=== PATIENT | male | born 1950 | race Caucasian/White ===

== ENCOUNTER 2017-12-29 06:56 | Inpatient (IN) | payer OTHER ==
--- NOTE | 2017-12-16 21:11 | HP ---
HISTORY AND PHYSICAL: DATE OF ADMISSION/SURGERY: 12/29/17 DATE OF OFFICE VISIT: 12/16/17 SURGEON: Dianelys Barragan MD * (DICTATED BY BAYLEE BRO) PROCEDURE: Left total knee arthroplasty. CHIEF COMPLAINT: Left knee pain. HISTORY OF PRESENT ILLNESS: Mr. Schmidt is a 67-year-old gentleman with continued complaints of left knee pain. He has failed conservative management and elected to proceed with a left total knee arthroplasty, which is scheduled for 12/29/[address] Barragan. PAST MEDICAL HISTORY: Denies. PAST SURGICAL HISTORY: Right shoulder arthroscopy, hernia repair, left knee arthroscopy x2, right knee arthroscopy x2, and right great toe surgery. CURRENT MEDICATIONS: 1. [place] 5/325 one tab twice daily as needed. 2. Ibuprofen 600 mg twice a day as needed. 3. Aspirin 325 daily. ALLERGIES: To DOXYCYCLINE. FAMILY HISTORY: Stroke and ALS. SOCIAL HISTORY: He is a 67-year-old gentleman, lives alone. He uses occasional recreational marijuana and uses alcohol rarely. He denies the use of tobacco or other drugs. REVIEW OF SYSTEMS: A complete 14-point review of systems was reviewed with the patient. It is positive for vertigo and occasional migraines. He denies history of DVT, PE, hepatitis, HIV, or anesthesia problems. PHYSICAL EXAMINATION GENERAL: He is well developed, well nourished, in no acute distress. VITAL SIGNS: He stands 68 inches tall, weighs 165 pounds. Blood pressure 117/ 64 and his heart rate 72. HEENT: Normocephalic, atraumatic. NECK: Supple. No palpable lymph nodes. PULMONARY: The lungs are clear to auscultation bilaterally. CARDIO: Regular rate and rhythm. Strong S1, S2. ABDOMEN: Soft, nontender, nondistended. NEUROLOGICAL: He is alert and oriented x3. Cranial nerves II through XII are intact. MUSCULOSKELETAL: Left lower extremity, the skin is intact. There are no open wounds or abrasions. He has a moderate joint effusion, some tenderness over the medial and lateral joint line. Range of motion is 10 to 110 degrees of flexion. 5/5 lower extremity strength. 2+ dorsalis pedis pulses and intact sensation. ASSESSMENT AND PLAN: Mr. Schmidt is a 67-year-old gentleman with end-stage osteoarthritis of the left knee. He has failed conservative management and elected to proceed with a left total knee arthroplasty, which is scheduled for 12/29/[address] Barragan discussed the risks and benefits of the surgery at today's visit and all his questions were answered. He will follow up with Dr. Barragan 2 weeks after the surgery. BAYLEE BRO [id number]/[facility] #: [id number] [facility]PITALMar[facility]
[~2017-12-29 06:56] MED LIST: Buffered Lidocaine 0.9% SYRIN* 5 ML/SYR SYRINGE INTRADERM ONE
--- OUTSIDE RECORDS SUMMARY | 2017-12-29 07:05 | XMS REPORT ---
:1950 External Reference #:[id number] Author Organization [facility] Address [address] [place] [address] [place] [address] Phone [phone] Care Team Providers Name Role Phone Valentin Healy MD Care Team Information Cast Associate Unavailable Karsten Wiley MD Primary Care Physician Unavailable Payers Type Date Identification Numbers Payment Provider Subscriber Workers Compensation Effective: Policy Number: State Insurance Ugo Schmidt 2016 [id number] Fund Onset: 2000 Group Number: [id number] [address] [address] Group Name: [id number] [place] [id number] [place]ID: [id number] Workers Expires: Policy Number: State Insurance Ugo Schmitd Compensation 2016 [id number] Fund Onset: 2000 Group Number: [id number] [address] [address] Group Name: [phone] [place] [address] PayID: [id number] Commercial Effective: Policy Number: Contreras/[employer] Ugo Schmidt 2013 [id number] Medicaid Expires: 2015 PayID: [id number] [address] [address] [place] [address] Problems Date Description Provider Status Onset: 01/17/2015 Headache Rachelle River NP Active Onset: 04/20/2015 Localized, secondary osteoarthritis Dianelys Barragan M.D. Active Onset: 03/07/2015 Osteoarthrosis Generalized Lower Leg Dianelys Barragan M.D. Active Social History Type Date Description Comments Lives With Alone Occupation Unemployed Smokeless Tobacco Never Used Smokeless Tobacco ETOH Use Occasionally consumes alcohol Smoking Patient has never smoked Exercise Type/Frequency Exercises regularly Allergies, Adverse Reactions, Alerts Date Description Reaction Status Severity Comments 10/01/2012 Doxycycline Chest pain, SOB active Moderate to Severe 02/20/2014 Keflex active stomachache Medications Medication Date Status Form Strength Qnty SIG Indications Ordering Provider [place] 08/04/ Active Tablets 5-325mg 60tab 1 by mouth M17.32 Dianelys 2016 s twice daily Yung, as needed M.D. Ibuprofen 01/17/ Active Tablets 600mg 72tab take /2-1 Dianelys 2014 s tab by mouth Yung, every 8 M.D. hours as needed headache, on no more than 2 days a week. Aspirin Ec / Active Tablets 325mg 90tab 1 po qd prn Unknown 0000 DR echevarria Compression 12/04/ Hx dispense 1 Rosi Stocking 2016 - pair of size Bordoni, 06/04/ large thigh HELP DESK SPECIALIST 2016 high strength compression stockings Naproxen 04/21/ Hx Tablets 500mg 60tab 1 by mouth Dianelys 2013 - s twice a day Yung, 03/06/ as needed M.D. 2014 Keflex 01/09/ Hx Capsules 500mg 56cap 1 tablet by Dianelys 2013 - s mouth q6 Yung, 02/19/ hours M.D. 2013 Nortriptyline 01/04/ Hx Capsules 10mg 150ca 1 po qhs for Valentin S. HCL 2014 - ps 2 wks then 2 Niraj, 12/07/ qhs for 2 M.D. 2014 wks then 3 qhs Colace 12/21/ Hx Capsules 100mg 60cap 1 by mouth Dianelys 2013 - s twice a day Yung, 02/19/ M.D. 2013 Hydrocodone-Abel 11/25/ Hx Tablets 5-325mg 80tab 1 or 2 tabs Dianelys taminophen 2013 - s po every 6-8 Yung, 06/04/ hours as M.D. 2016 needed for pain Nortriptyline 04/02/ Hx Capsules 10mg 60cap 1 for 2 Valentin S. HCL 2011 - s weeks then 2 [place], 10/01/ at bedtime M.D. 2012 Vicodin / Hx Tablets 5-300mg 2tabs 1/2 tab po Unknown 0000 - prn once 11/09/ daily 2013 Ibuprofen / Hx Tablets 600mg 90tab 1 by mouth Dianelys 0000 - s three a day Yung 01/17/ as needed Francois 2014 Medications Administered in Office Medication Date Status Form Strength Qnty SIG Indications Ordering Provider Depomedrol Administered Injection Dianelys 20MG Juan Barragan M.D. Synvisc Or Administered Injection Mal[place] B Synvisc-One Juan Barton, Injection 1 MG PA Synvisc Or Administered Injection Dianelys Synvisc-One Juan Barragan M.D. Injection 1 MG Synvisc Or Administered Injection Dianelys Synvisc-One Juan Barragan M.D. Injection 1 MG Synvisc Or Administered Injection Dianelys Synvisc-One Malik Barragan M.D. Injection 1 MG Synvisc Or Administered Injection Dianelys Synvisc-One Malik Barragan M.D. Injection 1 MG Synvisc Or Administered Injection Dianelys Synvisc-One Malik Barragan M.D. Injection 1 MG Synvisc Or Administered Injection Dianelys Synvisc-One Christen Barragan M.D. Injection 1 MG Synvisc Or Administered Injection Dianelys Synvisc-One Christen Barragan M.D. Injection 1 MG Synvisc Or Administered Injection Dianelys Synvisc-One Christen Barragan M.D. Injection 1 MG Depomedrol Administered Injection Dianelys 80MG Samaria Barragan M.D. Vital Signs Date Vital Result Comment 12/16/2017 Height 68 inches 5'8" Weight 165.00 lb BP Systolic 117 mmHg BP Diastolic 64 mmHg Respiratory Rate 16 /min Pain Level 5 BMI (Body Mass Index) 25.1 kg/m2 11/02/2017 Height 68 inches 5'8" Weight 165.00 lb Heart Rate 72 /min BP Systolic 128 mmHg BP Diastolic 78 mmHg BMI (Body Mass Index) 25.1 kg/m2 02/06/2017 Height 68 inches 5'8" Weight 163.00 lb Heart Rate 62 /min BP Systolic 153 mmHg BP Diastolic 89 mmHg Pain Level 6 BMI (Body Mass Index) 24.8 kg/m2 09/15/2016 Height 68 inches 5'8" Weight 165.00 lb Heart Rate 62 /min BP Systolic 122 mmHg BP Diastolic 80 mmHg Respiratory Rate 18 /min Body Temperature 97.7 F Pain Level 3 BMI (Body Mass Index) 25.1 kg/m2 09/08/2016 Height 68 inches 5'8" Weight 165.00 lb Heart Rate 56 /min BP Systolic 126 mmHg BP Diastolic 82 mmHg Pain Level 6 BMI (Body Mass Index) 25.1 kg/m2 09/01/2016 Height 68 inches 5'8" Weight 165.00 lb Heart Rate 60 /min Respiratory Rate 20 /min Pain Level 6 BMI (Body Mass Index) 25.1 kg/m2 08/04/2016 Height 68 inches 5'8" Weight 165.00 lb Heart Rate 61 /min BP Systolic 138 mmHg BP Diastolic 92 mmHg Pain Level 4 BMI (Body Mass Index) 25.1 kg/m2 06/05/2016 Height 68 inches 5'8" Weight 163.00 lb Heart Rate 56 /min BP Systolic Sitting 126 mmHg BP Diastolic Sitting 86 mmHg BP Systolic Standing 124 mmHg BP Diastolic Standing 82 mmHg Respiratory Rate 14 /min BMI (Body Mass Index) 24.8 kg/m2 12/12/2015 Height 68 inches 5'8" Weight 165.00 lb Heart Rate 76 /min Respiratory Rate 16 /min Pain Level 4 BMI (Body Mass Index) 25.1 kg/m2 12/05/2015 Height 68 inches 5'8" Weight 165.00 lb Pain Level 3 BMI (Body Mass Index) 25.1 kg/m2 11/28/2015 Height 68 inches 5'8" Weight 115.00 lb Pain Level 3 BMI (Body Mass Index) 17.5 kg/m2 11/07/2015 Height 68 inches 5'8" Weight 115.00 lb Pain Level 4 BMI (Body Mass Index) 17.5 kg/m2 04/27/2015 Height 68 inches 5'8" Weight 115.00 lb Pain Level 5 BMI (Body Mass Index) 17.5 kg/m2 04/20/2015 Height 68 inches 5'8" Weight 115.00 lb Pain Level 6 BMI (Body Mass Index) 17.5 kg/m2 04/13/2015 Height 68 inches 5'8" Weight 155.00 lb Pain Level 10 BMI (Body Mass Index) 23.6 kg/m2 03/07/2015 Height 68 inches 5'8" Weight 155.00 lb Heart Rate 53 /min BP Systolic 123 mmHg BP Diastolic 80 mmHg BMI (Body Mass Index) 23.6 kg/m2 01/16/2015 Height 68 inches 5'8" Weight 155.00 lb Heart Rate 76 /min BP Systolic Sitting 130 mmHg BP Diastolic Sitting 78 mmHg Respiratory Rate 17 /min BMI (Body Mass Index) 23.6 kg/m2 04/21/2014 Height 68 inches 5'8" Weight 165.00 lb Heart Rate 60 /min BMI (Body Mass Index) 25.1 kg/m2 02/20/2014 Height 68 inches 5'8" Weight 165.00 lb Heart Rate 56 /min BP Systolic 115 mmHg BP Diastolic 76 mmHg BMI (Body Mass Index) 25.1 kg/m2 01/20/2014 Height 68 inches 5'8" Weight 163.00 lb Pain Level 4 BMI (Body Mass Index) 24.8 kg/m2 01/09/2014 Height 68 inches 5'8" Weight 163.00 lb Heart Rate 54 /min BP Systolic 125 mmHg BP Diastolic 77 mmHg Body Temperature 97.7 F BMI (Body Mass Index) 24.8 kg/m2 01/04/2014 Height 68 inches 5'8" Weight 163.00 lb Heart Rate 60 /min BP Systolic Sitting 140 mmHg BP Diastolic Sitting 90 mmHg Respiratory Rate 16 /min BMI (Body Mass Index) 24.8 kg/m2 12/21/2013 Height 68 inches 5'8" Weight 167.00 lb Heart Rate 57 /min BP Systolic 143 mmHg BP Diastolic 88 mmHg BMI (Body Mass Index) 25.4 kg/m2 11/25/2013 Height 68 inches 5'8" Weight 168.00 lb Heart Rate 64 /min BMI (Body Mass Index) 25.5 kg/m2 11/10/2013 Height 68 inches 5'8" Weight 168.00 lb Heart Rate 64 /min BMI (Body Mass Index) 25.5 kg/m2 10/01/2012 Heart Rate 57 /min BP Systolic Sitting 118 mmHg BP Diastolic Sitting 78 mmHg Respiratory Rate 14 /min Results Test Date Test Result H/L Range Note Creatinine 10/04/2009 Creatinine 0.80 mg/dL 0.50-1.40 One Over Creatinine 1.20 eGFR Non- 104.8 > 60 eGFR 126.8 > 60 1 1 Because ethnic data is not always readily available, this report includes an eGFR for both -Americans and non- Americans. The National Kidney Disease Education Program (NKDEP) does not endorse the use of the MDRD equation for patients that are not between the ages of 18 and 70, are , have extremes of body size, muscle mass, or nutritional status, or are non- or non-. According to the National Kidney Foundation, irrespective of diagnosis, the stage of the disease is based on the level of kidney function: Stage Description GFR(mL/min/1.73 m(2)) 1 Kidney damage with normal or decreased GFR 90 2 Kidney damage with mild decrease in GFR 60-89 3 Moderate decrease in GFR 30-59 4 Severe decrease in GFR 15-29 5 Kidney failure <15 (or dialysis) Procedures Date CPT Code Description Status 02/06/201718144 Inject/Drain Joint/Bursa Major Completed 09/15/201694991 Inject/Drain Joint/Bursa Major Completed 09/08/201689943 Inject/Drain Joint/Bursa Major Completed 09/01/2016 89185 Inject/Drain Joint/Bursa Major Completed 12/12/2015 16765 Inject/Drain Joint/Bursa Major Completed 12/12/2015 63970 Inject/Drain Joint/Bursa Major Completed 12/05/2015 66966 Inject/Drain Joint/Bursa Major Completed 12/05/2015 29610 Inject/Drain Joint/Bursa Major Completed 11/28/2015 85374 Inject/Drain Joint/Bursa Major Completed 11/28/201552238 Inject/Drain Joint/Bursa Major Completed 04/27/2015 11487 Inject/Drain Joint/Bursa Major Completed 04/27/201514296 Inject/Drain Joint/Bursa Major Completed 04/20/201562822 Inject/Drain Joint/Bursa Major Completed 04/13/2015 14832 Inject/Drain Joint/Bursa Major Completed 04/21/2014 81187 Rad Exam; Knee, Ap&L Completed 12/29/2013 99556 Arthroscopy,Knee,Meniscectomy Medial Or Lateral Completed 12/29/2013 93350 Arthroscopy,Knee,Meniscectomy Medial Or Lateral Completed 11/10/2013 17218 Xray Knee 3 Views Completed 11/10/2013 Inject/Drain Joint/Bursa Major Completed Encounters Type Date Location Provider CPT E/M Dx Office Visit 11/02/2017 [facility] M.D. 78089 M17.32 1:45p C.Jie M25.562 M25.462 Office Visit 02/06/2017 10:45a [facility] M.D. 28225 M17.32 CZhang M25.562 M25.462 Office Visit 08/04/2016 1:45p [facility] M.D. 85080 M17.32 CZhang M17.12 Office Visit 06/05/2016 10:15a [facility] Valentin Valladares 80284 G44.321 Francois Healy Office Visit 11/07/2015 11:15a [facility] 53323 M17.32 [place] Office Visit 03/07/2015 1:00p [facility] 71028 715.06 [place] 715.06 Office Visit 01/16/2015 10:30a [place] [address] 784.0 [facility] [place] 339.22 Office Visit 04/21/2014 2:00p [facility] Darrel Gagnon 60936 715.36 [facility] [place] Office Visit 01/04/2014 11:45a [facility] Mahendra Healy 47592 339.22 [facility] [place] Office Visit 11/25/2013 11:45a [facility] Dianelys Barragan M.D. 27611 836.1 Of [place] 715.96 Office Visit 11/10/2013 1:30p [facility] 64747 715.16 [place] Office Visit 10/01/2012 11:15a [facility] Mahendra Healy 81229 339.22 [facility] [place] Office Visit 04/02/2012 11:15a [facility] Mahendra Healy 56450 339.22 [facility] [place] Office Visit 10/04/2009 10:45a [facility] Steve GarciaAiram Dias, 34359 742.9 [place] Garcia.Lucia Office Visit 09/24/2009 10:30a [facility] Steve Dias, 30348 784.0 [place] Garcia.Lucia 784.2 Plan of Care Future Appointment(s):01/11/2018 10:30 am - Dianelys Barragan M[facility]. at [facility]12/29/2017 9:30 am - Lito Pressley PA-C at [facility]12/29/2017 9:30 am - BAYLEE Robin at [facility]12/29/2017 9:30 am - Dianelys Barragan M.D. at [facility]12/16/2017 - Dianelys Barragan M.D.M17.32 Unilateral post- traumatic osteoarthritis, left kneeFollow up:Follow up: 2 weeks after agzdmejU77.562 Pain in left kneeM25.462 Effusion, left knee
--- OUTSIDE RECORDS SUMMARY | 2017-12-29 07:05 | XMS REPORT ---
:1950 External Reference #:[id number] Author Organization [facility] Address [address] [place] [address] [place] [address] Phone [phone] Care Team Providers Name Role Phone Valentin Healy MD Care Team Information Trimmer Operator Unavailable Karsten Wiley MD Primary Care Physician Unavailable Payers Type Date Identification Numbers Payment Provider Subscriber Workers Compensation Effective: Policy Number: State Insurance Ugo Schmidt 2016 [id number] Fund Onset: 2000 Group Number: [id number] [address] [address] Group Name: [id number] [place] [id number] [place]ID: [id number] Workers Expires: Policy Number: State Insurance Ugo Schmidt Compensation 2016 [id number] Fund Onset: 2000 Group Number: [id number] [address] [address] Group Name: [id number] [place] [address] PayID: [id number] Commercial Effective: Policy Number: Contreras/[employer] Ugo Schmidt 2013 [id number] Medicaid Expires: 2015 PayID: [id number] [address] [address] [place] [address] Problems Date Description Provider Status Onset: 01/17/2015 [...] Form Strength Qnty SIG Indications Ordering Provider [place] 08/04/ Active Tablets 5-325mg 60tab 1 by [...] pair of size Bordoni, 06/04/ large thigh PREHEMMER 2016 high strength compression stockings Naproxen 04/21/ Hx Tablets 500mg 60tab 1 by mouth Dinaelys 2013 - s twice a day Yung, [...] HCL 2011 - s weeks then 2 [place], 10/01/ at bedtime M.D. 2012 Vicodin / [...] Test Date Test Result H/L Range Note Urinalysis Profile 12/16/2017 Urine Color Laila Urine Appearance Clear Urine Specific [place] 1.017 1.010-1.030 Urine pH 6.0 5-9 Urine Urobilinogen Negative Negative Urine Ketones Negative Negative Urine Protein Negative Negative Urine Leukocytes Negative Negative Urine Blood Negative Negative * * Negative 1 Urine Nitrite Negative Negative Urine Bilirubin Negative Negative Urine Glucose Negative Negative CBC Auto Diff 12/16/2017 White Blood Count 6.2 10^3/uL 3.5-10.8 Red Blood Count 4.68 10^6/uL 4.00-5.40 Hemoglobin 14.2 g/dL 14.0-18.0 Hematocrit 43 % 42-52 Mean Corpuscular Volume 91 fL 80-94 Mean Corpuscular Hemoglobin 30 pg 27-31 Mean Corpuscular HGB Conc 34 g/dL 31-36 Red Cell Distribution Width 13 % 10.5-15 Platelet Count 194 10^3/uL 150-450 Mean Platelet Volume 7.3 um3 Low 7.4-10.4 Abs Neutrophils 3.8 10^3/uL 1.5-7.7 Abs Lymphocytes 1.8 10^3/uL 1.0-4.8 Abs Monocytes 0.6 10^3/uL 0-0.8 Abs Eosinophils 0.1 10^3/uL 0-0.6 Abs Basophils 0 10^3/uL 0-0.2 Abs Nucleated RBC 0 10^3/uL Granulocyte % 60.5 % 38-83 Lymphocyte % 28.3 % 25-47 Monocyte % 10.0 % High 0-7 Eosinophil % 0.9 % 0-6 Basophil % 0.3 % 0-2 Nucleated Red Blood Cells % 0 Comp Metabolic Panel 12/16/2017 Sodium 139 mmol/L 139-145 Potassium 4.1 mmol/L 3.5-5.0 Chloride 104 mmol/L 101-111 Co2 Carbon Dioxide 31 mmol/L 22-32 Anion Gap 4 mmol/L 2-11 Glucose 95 mg/dL 70-100 Blood Urea Nitrogen 16 mg/dL 6-24 Creatinine 0.81 mg/dL 0.67-1.17 BUN/Creatinine Ratio 19.8 8-20 Calcium 9.3 mg/dL 8.6-10.3 Total Protein 6.4 g/dL 6.4-8.9 Albumin 4.4 g/dL 3.2-5.2 Globulin 2.0 g/dL 2-4 Albumin/Globulin Ratio 2.2 1-3 Total Bilirubin 0.70 mg/dL 0.2-1.0 Alkaline Phosphatase 67 U/L 34-104 Alt 24 U/L 7-52 Ast 18 U/L 13-39 Egfr Non- 94.8 >60 Egfr 121.9 >60 2 Inr/Protime 12/16/2017 Inr 0.90 0.77-1.02 Laboratory test finding 12/16/2017 Partial Thrombo Time 34.1 seconds 26.0 -36.3 PTT Type & Screen 12/16/2017 Patient Blood Type O Negative Antibody Screen NEGATIVE Creatinine 10/04/2009 Creatinine 0.80 mg/dL 0.50-1.40 One Over Creatinine 1.20 eGFR Non- 104.8 > 60 eGFR 126.8 > 60 3 1 *Ascorbic acid is present which may interfere with detection of blood. 2 Because ethnic data is not always readily [...] 15-29 5 Kidney failure <15 (or dialysis) 3 Because ethnic data is not always readily [...] dialysis) Procedures Date CPT Code Description Status 02/06/201783976 Inject/Drain Joint/Bursa Major W/O US Completed 09/15/201602464 Inject/Drain Joint/Bursa Major W/O US Completed 09/08/201611816 Inject/Drain Joint/Bursa Major W/O US Completed 09/01/201680631 Inject/Drain Joint/Bursa Major W/O US Completed 12/12/2015 89765 Inject/Drain Joint/Bursa Major W/O US Completed 12/12/2015 95943 Inject/Drain Joint/Bursa Major W/O US Completed 12/05/2015 90555 Inject/Drain Joint/Bursa Major W/O US Completed 12/05/201596149 Inject/Drain Joint/Bursa Major W/O US Completed 11/28/2015 30754 Inject/Drain Joint/Bursa Major W/O US Completed 11/28/2015 69155 Inject/Drain Joint/Bursa Major W/O US Completed 04/27/2015 03590 Inject/Drain Joint/Bursa Major W/O US Completed 04/27/2015 54277 Inject/Drain Joint/Bursa Major W/O US Completed 04/20/2015 55094 Inject/Drain Joint/Bursa Major W/O US Completed 04/13/2015 39069 Inject/Drain Joint/Bursa Major W/O US Completed 04/21/2014 04980 Rad Exam; Knee, Ap&L Completed 12/29/2013 68120 Arthroscopy,Knee,Meniscectomy Medial Or Lateral Completed 12/29/2013 54291 Arthroscopy,Knee,Meniscectomy Medial Or Lateral Completed 11/10/2013 46051 Xray Knee 3 Views Completed 11/10/201384292 Inject/Drain Joint/Bursa Major W/O US Completed Encounters Type Date Location Provider CPT E/M Dx Office Visit 11/02/2017 [facility] M.D. 76957 M17.32 1:45p [facility] M25.562 M25.462 Office Visit 02/06/2017 10:45a [facility] M.D. 68749 M17.32 [facility] M25.562 M25.462 Office Visit 08/04/2016 1:45p [facility] M.D. 00956 M17.32 [place] M17.12 Office Visit 06/05/2016 10:15a [facility] Valentin Valladares 73086 G44.321 Francois Healy Office Visit 11/07/2015 11:15a [facility] 99191 M17.32 [place] Office Visit 03/07/2015 1:00p [facility] 95387 715.06 [place] 715.06 Office Visit 01/16/2015 10:30[place] [facility] [place] [address] 784.0 [facility] [place] 339.22 Office Visit 04/21/2014 2:00p [facility] Darrel Gagnon 38533 715.36 [facility] [place] Office Visit 01/04/2014 11:45a [facility] Valentin Healy, 11701 339.22 [facility] [place] Office Visit 11/25/2013 11:45a [facility] Barragan M.D. 62086 836.1 Of [place] 715.96 Office Visit 11/10/2013 1:30p [facility], 28871 715.16 [place] Office Visit 10/01/2012 11:15a [facility] Valentin Healy 74801 339.22 [facility] [place] Office Visit 04/02/2012 11:15a [facility] Valentin Healy 80371 339.22 [facility] [place] M.DAiram Office Visit 10/04/2009 10:45a [facility] Steve Dias, 84800 742.9 [place] M.DAiram Office Visit 09/24/2009 10:30a [facility] [place] Dias, 63991 784.0 [place] 784.2 Plan of Care Future Appointment(s):01/11/2018 10:30 am - Dianelys Barragan M.D. at [facility].12/29/2017 9:30 am - Lito Pressley PA-C at [facility].12/29/2017 9:30 am - BAYLEE Robin at [facility].12/29/2017 9:30 am - Dianelys Barragan M.D. at [facility]12/16/2017 - Dianelys Barragan M.D.M17.32 Unilateral post- traumatic osteoarthritis, left kneeFollow up:Follow up: 2 weeks after znflxefM14.562 Pain in left kneeM25.462 Effusion, left knee
[2017-12-29] MEDS ORDERED: Clindamycin 900 MG IVPREMIX(* 900 MG/50 ML SDV IV ONE (07:44)
[2017-12-29] MEDS ORDERED: Tranexamic Acid 1,000 MG/10 ML 1,000 MG in NS 0.9% 100 ML* 100 ML IV ONE (08:30)
[2017-12-29] MEDS ORDERED: Midazolam* 1 MG/ML 5 ML VIAL (5 MG) ONE (09:10)
[2017-12-29] MEDS ORDERED: Bupivacaine 0.25% SDV* 30 ML ONE (09:10)
[2017-12-29] MEDS ORDERED: fentaNYL* 50 MCG/ML 2 ML VIAL (100 MCG VIAL) ONE ×2 (09:41→16:08)
[2017-12-29] MEDS ORDERED: Dexamethasone IV* 4 MG/ML 1 ML (4 MG) ONE (10:02)
[2017-12-29] MEDS ORDERED: Midazolam* 1 MG/ML 2 ML VIAL (2 MG) ONE (10:25)
[2017-12-29] MEDS ORDERED: Ondansetron ODT TAB* 4 MG PO PRN (10:33)
[2017-12-29] MEDS ORDERED: Naloxone* 0.4 MG/ML 1 ML VIAL IV PRN (10:33)
[2017-12-29] MEDS ORDERED: Ondansetron INJ* 2 MG/ML VIAL IV PRN (10:33)
[2017-12-29] MEDS ORDERED: HYDROmorphone INJ* 1 MG/ML CARPUJECT SYRINGE IV PRN (10:33)
[2017-12-29] MEDS ORDERED: HYDROcodone/ACETAMIN 5-325 MG* 1 TAB PO PRN (10:33)
[2017-12-29] MEDS ORDERED: Bupivacaine 0.5% SDV PF* 30ML VIAL ONE (11:09)
[2017-12-29] MEDS ORDERED: Ondansetron TAB* 4 MG PO PRN (12:06)
[2017-12-29] MEDS ORDERED: Acetaminophen TAB* 325 MG PO PRN (12:06)
[2017-12-29] MEDS ORDERED: diPHENhydraMINE IV* 50 MG/ML 1 ml VIAL (BENADRYL) IV PRN (12:06)
[2017-12-29] MEDS ORDERED: Bisacodyl SUPP* 10 MG SUPP PR PRN (12:06)
[2017-12-29] MEDS ORDERED: Polyethylene Glycol 3350* 17 GM PACKET PO PRN (12:06)
[2017-12-29] MEDS ORDERED: Cyclobenzaprine TAB* 10 MG PO PRN (12:06)
[2017-12-29] MEDS ORDERED: oxyCODONE TAB* 5 MG TAB PO PRN (12:06)
[2017-12-29] MEDS ORDERED: Magnesium Hydroxide LIQ* 30 ML UDC PO PRN (12:06)
[2017-12-29] MEDS ORDERED: oxyCODONE/Acetamin 5/325 MG* TAB PO PRN ×2 (12:06)
--- NOTE | 2017-12-29 13:00 | RAD ---
Indication: Left knee replacement 2 views of left knee demonstrates bipolar left knee arthroplasty in satisfactory position. No evidence of periprosthetic fracture is noted. IMPRESSION: Left knee replacement in satisfactory position.
[2017-12-29] MEDS: fentaNYL* 50 MCG/ML 2 ML VIAL (100 MCG VIAL) IV PRN ×3 (16:09→16:24)
[2017-12-29] MEDS ORDERED: oxyCODONE TAB* 5 MG TAB ONE (16:26)
[2017-12-29] MEDS: oxyCODONE TAB* 5 MG TAB PO PRN ×2 (16:29→17:21)
[2017-12-29] MEDS ORDERED: Ketorolac INJ* 30 MG/ML 1 ML VIAL ONE (16:47)
[2017-12-29] MEDS ORDERED: Warfarin TAB(*) 6 MG PO ONE (18:00)
[2017-12-29] MEDS: Morphine VIAL* 4 MG/ML VIAL (1 ml vial) IV PRN (18:11)
[2017-12-29] MEDS: Ondansetron 40 MG VIAL* 2 MG/ML 20 ML VIAL IV PRN (19:00)
[2017-12-29] MEDS: Clindamycin 600 MG IVPREMIX(* 600 MG/50 ML SDV IV SCH (19:07)
[2017-12-29] MEDS: Ascorbic Acid TAB* 500 MG PO SCH (21:59)
[2017-12-29] MEDS: Magnesium Hydroxide LIQ* 30 ML UDC PO SCH (21:59)
[2017-12-29] MEDS: HYDROcodone/ACETAMIN 5-325 MG* 1 TAB PO PRN (21:59)
[2017-12-29] MEDS: Docusate CAP* 100 MG PO SCH (21:59)
[2017-12-30] MEDS: Clindamycin 600 MG IVPREMIX(* 600 MG/50 ML SDV IV SCH ×2 (02:50→10:24)
[2017-12-30] MEDS: HYDROcodone/ACETAMIN 5-325 MG* 1 TAB PO PRN ×5 (05:54→22:24)
[2017-12-30 07:32] LABS: Hematocrit 32 % (42-52); Hemoglobin 11.2 g/dl (14.0-18.0); Mean Platelet Volume 7.4 um3 (7.4-10.4); Platelet Count 152 10^3/ul (150-450)
[2017-12-30 07:43] LABS: EGFR Non-African American 93.4 (>60)
[2017-12-30 07:56] LABS: INR 1.07 (0.77-1.02)
[2017-12-30] MEDS: Ascorbic Acid TAB* 500 MG PO SCH ×2 (09:20→21:19)
[2017-12-30] MEDS: Docusate CAP* 100 MG PO SCH ×2 (09:20→21:19)
[2017-12-30] MEDS: Magnesium Hydroxide LIQ* 30 ML UDC PO SCH ×2 (09:20→21:20)
[2017-12-30] MEDS: Morphine VIAL* 4 MG/ML VIAL (1 ml vial) IV PRN (10:32)
[2017-12-30] MEDS: Ondansetron 40 MG VIAL* 2 MG/ML 20 ML VIAL IV PRN (10:33)
[2017-12-30] MEDS: Enoxaparin(*) 40 MG/0.4 ML SYR SUBCUT SCH (12:44)
--- NOTE | 2017-12-30 13:26 | PN ---
Progress Note - Progress Note Date of Service: 12/30/17 SOAP: Subjective: [Pt was seen sitting back in chair. States pain is well controlled. Doing well, no complaints. Denies any chest pain, SOB, nausea or vomiting. ] Objective: [General: Pt is alert, awake and oriented. NAD MSK, LLE: dressing is c/d/i. +df/pf. no tenderness to palpation of calves. Sensation intact to light touch distally. 2+ DP pulse. ] Vital Signs Temp 98.7 F 12/30/17 11:30 Pulse 57 12/30/17 11:30 Resp 18 12/30/17 12:56 BP 142/78 12/30/17 11:30 Pulse Ox 99 12/30/17 11:30 Intake & Output 12/29/17 12/30/17 12/30/17 18:59 06:59 18:59 Intake Total 2750 180 2967 Output Total 1974 1150 1050 Balance 775 -970 1917 Weight 159 lb Intake: IV Fluids 2750 1597 900MG CLINDAMYCIN 50 LR 2700 1597 Medicated IV 210 Clindamycin 210 Oral 180 1160 Output: Urine 1050 Pham 1975 1150 Assessment: [POD 1 LTKA ] Plan: [Continue current pain medication continue with PT/OT warfarin 4mg tonight possible dc tomorrow. ]
[2017-12-30] MEDS ORDERED: Warfarin TAB(*) 4 MG PO ONE (17:00)
--- NOTE | 2017-12-30 17:44 | OP ---
DATE OF OPERATION: 12/29/17 - ROOM #353 DATE OF : 48 SURGEON: Dianelys Barragan MD. HIGH SCHOOL MATHEMATICS TEACHER: BAYLEE Middleton. Ms. Barton did help throughout the procedure with preparation of the leg, wound retraction, manipulation of the knee and wound closure. ANESTHESIOLOGIST: Dr. Box. ANESTHESIA: Spinal. PRE-OP DIAGNOSIS: Severe posttraumatic osteoarthritis of the left knee joint. POST-OP DIAGNOSIS: Severe posttraumatic osteoarthritis of the left knee joint. OPERATIVE PROCEDURE: Left total knee arthroplasty. TOURNIQUET TIME: 52 minutes. ESTIMATED BLOOD LOSS: 300 cc. COMPLICATIONS: None. SPECIMEN: Bone and cartilage from the left knee joint sent to pathology. HARDWARE USED: This is cemented [employer] total knee arthroplasty hardware. For the femur, a size 6 left posterior stabilized Legion Oxinium femoral component. For the tibia, a size 5 left Kamille II tibial baseplate. For the insert, 9 mm posterior stabilized articular insert size 5/6. For the patella 35-mm, 3-peg all poly patella with 7.5 thickness. BRIEF HISTORY/INDICATIONS: Mr. Schmidt is a 67-year-old gentleman with years of increasingly severe left knee pain. His original injury was a workmen's comp injury. Over time, he developed severe posttraumatic arthritis of the left knee joint. He failed conservative treatment with antiinflammatory pain medication, physical therapy and intraarticular injections. His radiographs showed bone-on- bone arthritis. Due to continued pain and decreased quality of life, he elected to undergo left total knee arthroplasty. Informed consent was obtained from the patient. He understood the risk of surgery included but were not limited to bleeding, infection, damage to nearby structures, continued pain , need for further surgery, intraoperative fracture, nerve palsy, hardware failure or loosening, knee stiffness, loss of motion, stroke, heart attack, blood clot, and . He wished to proceed. INTRAOPERATIVE FINDINGS: Intraoperatively the patient was noted to have severe endstage arthritis of the left knee joint. There was complete loss of cartilage and extensive osteophyte formation in all 3 compartments. DESCRIPTION OF PROCEDURE: Mr. Schmidt was identified in the preanesthesia unit. His left lower extremity was marked as the correct operative side. Informed consent was signed and placed in the chart. The patient was taken to the operating room and placed under spinal anesthesia without difficulty. A Pham catheter was placed. Tourniquet was placed on the left thigh. Left lower extremity was prepped and draped in the usual sterile fashion. Preop time-out was made to correctly identify the patient, side, and site. Appropriate perioperative antibiotics were given within 1 hour of incision. Tourniquet was inflated. A midline incision of 12 cm was made with a 10 blade and carried down to the extensor mechanism. A new 10 blade was used to make a standard medial parapatellar arthrotomy. The patella was subluxed laterally. Electrocautery was used to subperiosteally elevate the soft tissue off the superomedial tibia. Any osteophytes were removed with the rongeur. The knee was flexed up. The anterior horn of the lateral meniscus and ACL were sharply released. A drill was used to enter the distal femur. Intramedullary distal femoral cutting guide was pinned on the distal femur. Oscillating saw was used to make the distal femoral cut. Next, the external rotation guide was pinned on the distal femur and the distal femur was sized to a size 6. Size 6 multi-cutting jig was pinned on the distal femur. Oscillating saw was used to make the appropriate 4 chamfer cuts. The PCL was released and the tibia was subluxed anteriorly. Extramedullary tibial cutting guide was pinned on the proximal tibia. Oscillating saw was used to make the proximal tibial cut perpendicular to the mechanical axis of the tibia. The bone was carefully removed. The knee was brought out into full extension. A spacer block had a good fit. There was good medial and lateral ligamentous balancing. Flexion and extension gaps were well balanced. The knee was flexed up. Lamina time stamp assembler was placed both medially and laterally. Any remaining meniscus was carefully removed using electrocautery. A curved osteotome was used to remove any posterior osteophytes. A size 6 left femoral trial was impacted on to the distal femur. This trial had excellent fit. The box for the posterior stabilized implant was prepared using a reamer and box cut osteotome. A size 5 tibial tray trial with a 9 mm insert insert trial was placed and the knee was taken through a range of motion. The knee had full extension to 130 degrees of flexion. There was satisfactory patellofemoral tracking. The patella was everted. 7 mm of patellar bone and cartilage was carefully removed using an oscillating saw. The patella was sized to a size 35 guide. A 35 drill guide was used to drill the 3 peg holes. A trial 35 patella with 7.5 thickness was placed and the knee was taken through range of motion. There was satisfactory patellofemoral tracking. All trials were carefully removed. The tibia was subluxed anteriorly and sized to a size 5. Proximal tibia was prepared using a size 5 keel punch. All bony cut surfaces were copiously irrigated with sterile saline and dried. Final implants were cemented into place starting with the tibia, followed by the femur , and lastly the patella. A 9 mm insert trial was placed and the knee was brought out to full extension. The tourniquet was turned down. The knee was copiously irrigated with sterile saline. Electrocautery was used to obtain meticulous hemostasis. Once the cement had fully cured, the insert trial was removed. Any excess cement was removed from around the capsule and hardware. Final insert chosen was a 9 mm posterior stabilizer articular insert size 5/6. This was locked into position on the tibial tray. The stability of the insert was checked and rechecked and noted to be stable. The knee was once again copiously irrigated with sterile saline. The extensor mechanism was closed using interrupted #1 Vicryls. The rest of the incision was closed in a layered fashion using 0 and 2-0 Vicryls. Skin was closed using running 3-0 nylon suture. Sterile Xeroform, 4x4s, and Webril were used to cover the incision. Abel wrap and cold pack were placed over this. The patient' s anesthesia was reversed without difficulty. He was taken to the PACU in stable condition. Intended weightbearing will be weightbearing as tolerated. Intended DVT prophylaxis will be Coumadin with a Lovenox bridge. [id number]/[facility] #: [id number] JANET
[2017-12-31] MEDS: HYDROcodone/ACETAMIN 5-325 MG* 1 TAB PO PRN ×4 (02:50→20:53)
[2017-12-31 05:52] LABS: Hematocrit 32 % (42-52); Hemoglobin 10.9 g/dl (14.0-18.0); Mean Platelet Volume 7.5 um3 (7.4-10.4); Platelet Count 145 10^3/ul (150-450)
[2017-12-31 05:58] LABS: INR 1.14 (0.77-1.02)
--- NOTE | 2017-12-31 09:43 | PN ---
Progress Note - Progress Note Date of Service: 12/31/17 SOAP: Subjective: [Pt was seen sitting back in chair. States pain is well controlled. Doing well, no complaints. Denies any chest pain, SOB, nausea or vomiting. ] Objective: [General: Pt is alert, awake and oriented. NAD MSK, LLE: dressing is c/d/i, changed today incision is c/d/i with no drainage or erythema. Minimal dried blood present on guaze pad. +df/pf. no tenderness to palpation of calves. Sensation intact to light touch distally. 2+ DP pulse. ] Vital Signs Temp 98.5 F 12/31/17 04:13 Pulse 66 12/31/17 04:13 Resp 16 12/31/17 07:05 BP 133/63 12/31/17 04:13 Pulse Ox 97 12/31/17 04:13 Intake & Output 12/30/17 12/31/17 12/31/17 18:59 06:59 18:59 Intake Total 2967 950 Output Total 1400 1050 Balance 1567 -100 Intake: IV Fluids 1597 LR 1597 Medicated IV 210 Clindamycin 210 Oral 1160 950 Output: Urine 1400 1050 Other: Estimated Void Medium # Voids 1 Assessment: [POD 2 LTKA ] Plan: [Continue current pain medication continue with PT/OT INR 1.14 - warfarin 8mg tonight recheck tomorrow DC home today as patient meets PT goals and pain is well controlled.
[2017-12-31] MEDS: Docusate CAP* 100 MG PO SCH ×2 (10:07→20:53)
[2017-12-31] MEDS: Magnesium Hydroxide LIQ* 30 ML UDC PO SCH ×2 (10:07→21:54)
[2017-12-31] MEDS: Ascorbic Acid TAB* 500 MG PO SCH ×2 (10:07→20:53)
[2017-12-31] MEDS: Enoxaparin(*) 40 MG/0.4 ML SYR SUBCUT SCH (12:13)
[2017-12-31] MEDS ORDERED: Warfarin TAB(*) 4 MG PO ONE (18:30)
[2018-01-01] MEDS: HYDROcodone/ACETAMIN 5-325 MG* 1 TAB PO PRN ×2 (02:01→09:18)
[2018-01-01 06:08] LABS: Hematocrit 30 % (42-52); Hemoglobin 10.6 g/dl (14.0-18.0); Mean Platelet Volume 7.8 um3 (7.4-10.4); Platelet Count 132 10^3/ul (150-450)
[2018-01-01 06:12] LABS: INR 1.21 (0.77-1.02)
[2018-01-01] MEDS: Ascorbic Acid TAB* 500 MG PO SCH (09:18)
--- NOTE | 2018-01-01 09:18 | PN ---
Progress Note - Progress Note Date of Service: 01/01/18 SOAP: Subjective: POD# [address] Barragan on 12/29/17. PT went well this morning. He is very concerned about swelling in left leg/thigh. Previously discussed with Dr. Barragan , concerned is DVT. VSS overnight. Denies CP, SOB, calf pain, N/V, F/C. Objective: Vital Signs Temp 98.8 F 01/01/18 07:13 Pulse 74 01/01/18 07:13 Resp 16 01/01/18 07:17 BP 130/81 01/01/18 07:13 Pulse Ox 100 01/01/18 07:17 Intake & Output 12/31/17 01/01/18 01/01/18 18:59 06:59 18:59 Intake Total 330 700 225 Output Total 875 800 Balance -545 -100 225 Intake: Oral 330 700 225 Output: Urine 875 800 Other: Estimated Void Large Medium Date of Last Bowel 12/31/17 Movement # Bowel Movements 1 Estimated Stool Amount Small # Voids 1 1 Laboratory Results - last 24 hr 01/01/18 01/01/18 05:07 05:07 Hgb 10.6 L Hct 30 L Plt Count 132 L MPV 7.8 INR (Anticoag Therapy) 1.21 H General: WN, WD, NAD, AO LLE: Dressing C/D/I, incision without erythema, drainage, warmth, moderate swelling in thigh. +PF/DF, 2+ DP pulse, SITLT. Tender to palpation quadriceps 10 -12 cm proximal to incision. Assessment: POD# [address] Barragan on 12/29/17. Plan: - Continue current pain medication - Continue with PT/OT - Will get doppler to evaluate for DVT though very low risk. - D/C home today pending US results.
[2018-01-01] MEDS: Magnesium Hydroxide LIQ* 30 ML UDC PO SCH (09:19)
[2018-01-01] MEDS: Docusate CAP* 100 MG PO SCH (09:19)
[2018-01-01] MEDS: Enoxaparin(*) 40 MG/0.4 ML SYR SUBCUT SCH (12:11)
--- NOTE | 2018-01-01 12:11 | RAD ---
Indication: Status post left knee replacement.. Duplex Doppler sonography of the deep venous system of the left lower extremity deep venous system was performed. Bilaterally the common femoral veins appear patent and compressible. Left proximal greater saphenous vein, proximal deep femoral vein, femoral vein, popliteal vein, posterior tibial veins and peroneal veins appear patent and compressible.Popliteal fossa fluid collection measuring 3.1 x 0.7 x 1.5 cm. IMPRESSION: NO EVIDENCE OF DEEP VENOUS THROMBOSIS IS IDENTIFIED.
[2018-01-01 14:36] VITALS: BP 144/82
--- NOTE | 2018-01-01 23:46 | DS ---
DISCHARGE SUMMARY: DATE OF ADMISSION: 12/29/17 DATE OF DISCHARGE: 01/01/18 ATTENDING PHYSICIAN: Dianelys Barragan MD * (DICTATED BY BAYLEE GRISSOM) CHIEF COMPLAINT: Left knee osteoarthritis. DISCHARGE DIAGNOSIS: Status post left total knee arthroplasty. PROCEDURE: Left total knee arthroplasty. CONSULTATIONS: Physical Therapy, Occupational Therapy. BRIEF HISTORY: Mr. Schmidt is a 67-year-old gentleman with continued complaints of left knee pain. He has failed conservative management and elected to proceed with a left total knee arthroplasty on 12/29/[address] Dianelys Barragan. HOSPITAL COURSE: Mr. Schmidt was admitted to [facility] on 12/29/17. He underwent a left total knee arthroplasty. Postoperatively, he recovered in the short stay surgical unit. On postoperative day 1, his Pham catheter was removed and he was able to urinate on his own. He advanced to regular diet without difficulty and his pain was well controlled with p.o. Percocet and he was started on Lovenox and Coumadin for DVT prophylaxis. Labs and vital signs remained stable. He was able to weightbear as tolerated on his left lower extremity. He was advanced appropriately with physical therapy and occupational therapy. DVT prophylaxis again was Lovenox and Coumadin until he reached therapeutic INR. On postoperative day 2, he was orthopedically and medically stable for discharge home with services though he did have some swelling of his left thigh and was concerned for DVT. PHYSICAL EXAMINATION: General: Well nourished, well developed, in no acute distress, alert and oriented, sitting comfortably in a chair. Normal mood and affect. Vital signs on day of discharge, temperature is 98.8, pulse 74, respirations 16, blood pressure 130/81. Left lower extremity dressing was clean , dry, and intact. Incision had showed intact sutures with no erythema, drainage, warmth. He did have moderate swelling in his thigh. He was able to dorsiflex and plantar flex his ankle. He had 2+ DP pulses. Sensation intact to light touch distally. He had some tenderness to palpation at the quadriceps 10 to 12 cm proximal to his incision. LABORATORY DATA: On date of discharge, hemoglobin 10.6, hematocrit 30, platelets 132. INR 1.21. RADIOGRAPHS: Postoperative radiographs of the left knee demonstrate a left total knee arthroplasty with satisfactory prosthesis placement and no bony abnormalities. Doppler ultrasound of the left thigh showed no DVT. DISCHARGE MEDICATIONS: 1. Ascorbic acid 500 mg twice daily. 2. Aspirin 81 mg daily. 3. Percocet 5/325 one to two tabs every 4 to 6 hours as needed for pain. 4. Lutein 20 mg every other day. 5. Multivitamin daily. 6. Vitamin B complex every other day. 7. Vitamin B12 sublingual every day. 8. Warfarin 2 mg tablets, take as directed to maintain INR of around 2. CONDITION ON DISCHARGE: Stable. DISCHARGE INSTRUCTIONS: Mr. Schmidt is a 67-year-old gentleman who is postoperative day 2 status post left total knee arthroplasty, which was uncomplicated. He is orthopedically and medically stable for discharge home with services. Labs and vital signs are stable. He will restart home medications. He will take 6 mg of Coumadin on 01/01/18, 8 mg on 01/02/18, and 8 mg on 01/03/18. He will have INR rechecked on Thursday. He will have INR draws on Thursday and with visiting nurse services. He will remain weightbearing as tolerated on the left lower extremity. He will have home PT twice a week. He will take Percocet for pain control. He can take Colace up to 3 times a day for constipation. He will follow up with Dr. Barragan in 10 to 14 days for incision check and suture removal. He was instructed to go to the emergency room immediately should he develop chest pain or shortness of breath. He will call our office immediately if he develops fever, increasing pain, increasing redness, or calf pain. BAYLEE GRISSOM [id number]/[facility] #: [id number] JANET
== END 2018-01-01 14:00 | disposition home health service (06) | DRG 302 ==
LOC: AA 06:56 → SSU 12:06
PROVIDERS: ADMIT Orthopaedic Surgery Adult Reconstructive Orthopaedic Surgery; ATTEND Orthopaedic Surgery Adult Reconstructive Orthopaedic Surgery
PROC: 0SRD069 Replacement of Left Knee Joint with Oxidized Zirconium on Polyethylene Synthetic Substitute, Cemented, Open Approach (ICD-10-PCS; principal; 2017-12-29 09:00)
DX: M17.32 Unilateral post-traumatic osteoarthritis, left knee (principal); G43.909 Migraine, unspecified, not intractable, without status migrainosus; M25.462 Effusion, left knee; G25.0 Essential tremor; F41.0 Panic disorder [episodic paroxysmal anxiety]; F43.10 Post-traumatic stress disorder, unspecified; M25.762 Osteophyte, left knee; G44.209 Tension-type headache, unspecified, not intractable; G47.00 Insomnia, unspecified; R42 Dizziness and giddiness; R60.0 Localized edema; X58.XXXS Exposure to other specified factors, sequela; Z88.1 Allergy status to other antibiotic agents; Z82.3 Family history of stroke; Z72.89 Other problems related to lifestyle; Z82.5 Family history of asthma and other chronic lower respiratory diseases; Z83.79 Family history of other diseases of the digestive system; Z85.841 Personal history of malignant neoplasm of brain; Z80.8 Family history of malignant neoplasm of other organs or systems; T14.90XS Injury, unspecified, sequela; Z79.82 Long term (current) use of aspirin; Z79.01 Long term (current) use of anticoagulants
CPT/HCPCS: 36415; 80048; 85014; 85018; 85049; 85610; A9270-GY; C1776; G8978-GP-CJ; G8979-GP-CI; J1100; J1650; J1885; J2250; J2270; J3010

== ENCOUNTER 2018-02-18 06:03 | Day surgery (SDC) | payer OTHER ==
[~2018-02-18 06:03] MED LIST changes: +Dexamethasone IV* 4 MG/ML 1 ML (4 MG) IV SLOW PU ONE; +Famotidine IV* 10 MG/ML 2 ML (20 mg) IV ONE
[2018-02-18] MEDS ORDERED: Dexamethasone IV* 4 MG/ML 1 ML (4 MG) ONE (06:11)
[2018-02-18] MEDS ORDERED: Famotidine IV* 10 MG/ML 2 ML (20 mg) ONE (06:11)
[2018-02-18] MEDS ORDERED: Naloxone* 0.4 MG/ML 1 ML VIAL IV PRN (07:11)
[2018-02-18] MEDS ORDERED: Ondansetron INJ* 2 MG/ML VIAL IV PRN (07:11)
[2018-02-18] MEDS ORDERED: oxyCODONE/Acetamin 5/325 MG* TAB PO PRN (07:11)
[2018-02-18] MEDS ORDERED: fentaNYL* 50 MCG/ML 2 ML VIAL (100 MCG VIAL) ONE ×2 (07:12→08:55)
[2018-02-18] MEDS ORDERED: Midazolam* 1 MG/ML 5 ML VIAL (5 MG) ONE (07:12)
[2018-02-18] MEDS ORDERED: Propofol* 10 MG/ML 20 ML BTL IV PUSH ONE (07:13)
[2018-02-18] MEDS ORDERED: Chloroprocaine 2%* 20 ML VIAL ONE (07:13)
[2018-02-18] MEDS ORDERED: Ondansetron INJ* 2 MG/ML VIAL ONE (07:13)
[2018-02-18] MEDS ORDERED: EPHEDrine (Pressors)* 50 MG/ML VIAL ONE (07:34)
[2018-02-18] MEDS ORDERED: oxyCODONE/Acetamin 5/325 MG* TAB ONE (08:04)
[2018-02-18] MEDS ORDERED: HYDROcodone/ACETAMIN 5-325 MG* 1 TAB ONE ×2 (08:13→08:55)
[2018-02-18] MEDS ORDERED: HYDROmorphone INJ* 0.5 MG/0.5 ML SYRINGE ONE (08:55)
[2018-02-18] MEDS: HYDROmorphone INJ* 0.5 MG/0.5 ML SYRINGE IV PRN ×2 (08:57→09:05)
[2018-02-18] MEDS: fentaNYL* 50 MCG/ML 2 ML VIAL (100 MCG VIAL) IV PRN ×2 (08:58→09:04)
--- NOTE | 2018-02-18 09:19 | RAD ---
CPT II Codes: G9500 INDICATION: Left knee manipulation, status post left bilateral knee arthroplasty Fluoroscopic services provided for referring physician. 4.4 seconds of fluoroscopy time was used. IMPRESSION: Fluoroscopic services provided for referring physician for knee manipulation.
[2018-02-18] MEDS ORDERED: Lidocaine 1% MPF wEPI 200,000* 30 ML SDV ONE (10:00)
[2018-02-18] MEDS ORDERED: Thrombin 5,000 UNITS* 1 APPLIC KIT - topical use - TOPICAL ONE (10:00)
[2018-02-18] MEDS ORDERED: Bacitracin IV* 50,000 UNITS INJ ONE (10:00)
[2018-02-18 10:29] VITALS: BP 129/82
--- NOTE | 2018-02-19 16:25 | OP ---
OPERATIVE REPORT: DATE OF OPERATION: 02/18/18 DATE OF : 48 ATTENDING SURGEON: Dianelys Barragan MD ANESTHESIOLOGIST: Dr. Nunez. ANESTHESIA: Spinal. 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 OPERATIVE PROCEDURE: Manipulation under anesthesia of the left total knee arthroplasty. COMPLICATIONS: None. ESTIMATED BLOOD LOSS: None. SPECIMEN: None. BRIEF HISTORY/INDICATIONS: Mr. Schmidt is a 68-year-old gentleman who had a workman's comp injury man y years ago and went on to develop posttraumatic arthritis. He had on 12/29/17 left total knee arthr oplasty. Postoperatively, the patient has been psychologically unable to overcome the postoperative pain and bend the knee. He has been holding the knee in extension despite all of my recommendations against this. He presented to clinic 6 weeks after surgery with no more than 50 degrees of flexion. We discussed manipulation under anesthesia and the necessity of this. He wished to proceed. Inform ed consent was obtained from the patient. He understood the risk of surgery included but were not li mited to bleeding, infection, damage to nearby structures, periprosthetic fracture, continued stiffne ss in the knee, anesthesia risk, stroke, heart attack, blood clot and . The patient wished to p roceed. INTRAOPERATIVE FINDINGS: Intraoperatively the patient was noted to have 0 to 35 degrees of motion in the knee joint with significant scar tissue to begin the procedure. He was advanced to 130 degrees of flexion. DESCRIPTION OF PROCEDURE: Mr. Schmidt was identified in the preanesthesia unit. His left lower extrem ity was marked as the correct operative site. Informed consent was signed and placed in the chart. The patient was taken to the operating room and placed under spinal anesthesia. Preop time-out was m ying to correctly identify the patient side and site. AP and lateral C-arm views were obtained to ens ure there was no periprosthetic abnormality on x-ray. There was none noted. The left knee was carefu lly and conservatively extended and flexed repeatedly. There was audible and palpable scar tissue cameron akdown. The knee quite easily flexed to 130 degrees of flexion. AP and lateral C-arm views were onc e again obtained and showed no periprosthetic fracture or other abnormality. The patient's anesthesi a was reversed without difficulty. He was taken to the PACU in stable condition. Intended weightbear ing will be weightbearing as tolerated. Intended DVT prophylaxis will be aspirin. He will have imme diate physical therapy to work on range of motion and followup in 1 week's time. [id number]/[facility] #: [id number]
== END 2018-02-18 11:50 | disposition home or self-care (01) ==
LOC: OR 06:03
PROVIDERS: ATTEND Orthopaedic Surgery Adult Reconstructive Orthopaedic Surgery
DX: M24.662 Ankylosis, left knee (principal); Z96.652 Presence of left artificial knee joint; Z47.1 Aftercare following joint replacement surgery; M25.562 Pain in left knee; M25.462 Effusion, left knee; F41.9 Anxiety disorder, unspecified; R42 Dizziness and giddiness
CPT/HCPCS: 76000; A9270-GY; J1100; J1170; J2001; J2250; J2400; J2405; J2704; J3010